=== PATIENT | male | born 1990 | race Caucasian/White ===

== ENCOUNTER 2018-07-04 21:10 | Emergency (ER) | payer SELFPAY ==
[~2018-07-04] VITALS: Ht 177.8 cm; Wt 98.9 kg
[2018-07-04 21:34] VITALS: Ht 177.8 cm; Wt 98.9 kg
[2018-07-04 23:55] VITALS: BP 135/93
== END 2018-07-04 23:55 | disposition home or self-care (01) ==
LOC: ED 21:10
DX: L50.9 Urticaria, unspecified (principal); F17.210 Nicotine dependence, cigarettes, uncomplicated
CPT/HCPCS: J2930

== ENCOUNTER 2018-08-10 14:34 | Emergency (ER) | payer SELFPAY ==
[~2018-08-10] VITALS: Ht 177.8 cm; Wt 95.7 kg
[2018-08-10 14:36] VITALS: Ht 177.8 cm; Wt 95.7 kg
[2018-08-10 17:36] VITALS: BP 138/82
== END 2018-08-10 17:42 | disposition home or self-care (01) ==
LOC: ED 14:34
DX: J45.901 Unspecified asthma with (acute) exacerbation (principal); F17.210 Nicotine dependence, cigarettes, uncomplicated
CPT/HCPCS: 99406; J2930; J7613; J7644

== ENCOUNTER 2018-10-25 01:59 | Emergency (ER) | payer SELFPAY ==
[~2018-10-25] VITALS: Ht 177.8 cm; Wt 99.3 kg
[2018-10-25 02:02] VITALS: Ht 177.8 cm; Wt 99.3 kg
[2018-10-25 04:46] VITALS: BP 128/89
== END 2018-10-25 04:46 | disposition home or self-care (01) ==
LOC: ED 01:59
DX: J01.90 Acute sinusitis, unspecified (principal); J45.909 Unspecified asthma, uncomplicated
CPT/HCPCS: J1885; J2270; Q0162; Q0163